=== PATIENT | male | born 1970 | race African-American/Black ===

== ENCOUNTER 2018-07-15 21:03 | Inpatient (IN) ==
[2018-07-15] MEDS ORDERED: fentaNYL 100 MCG/2 ML VIAL IV STA (21:22)
[2018-07-15 21:27] LABS: Basophils # 0.1 10*3/uL (0.0-0.2); Basophils % 0.4 % (0.0-0.8); Eosinophils # 0.1 10*3/uL (0.0-0.87); Eosinophils % 0.6 % (0.00-10.9); Hematocrit 42.7 VOL% (42.0-52.0); Hemoglobin 13.6 GM/DL (14.0-18.0); Immature Granulocytes % 1.1 %; Immature Granulocytes Absolute 0.16 #; Lymphocytes # 4.1 10*3/uL (1.4-4.0); Lymphocytes % 28.6 % (21.2-54.2); Mean Corpuscular HGB Conc 31.9 GM/DL (32-36); Mean Corpuscular Hemoglobin 30 PG (27-34); Mean Corpuscular Volume 94.5 FL (87-102); Mean Platelet Volume 11.1 FL (9.6-12.0); Monocytes # 0.7 10*3/uL (0.11-0.8); Monocytes % 4.6 % (1.7-12.7); Neutrophils # 9.3 10*3/uL (1.4-7.4); Neutrophils % 64.7 % (38.7-73.9); Platelet Count 185 T/CUMM (130-400); Red Blood Count 4.52 MC/CUMM (3.8-5.5); Red Cell Distribution Width 12.1 % (9.3-17.3); White Blood Count 14.3 T/CUMM (4-12)
[2018-07-15 21:36] LABS: INR 0.9; PT Patient Result 9.7 SECS; Partial Thromboplastin Time 22.8 SECS (0-40)
[2018-07-15 21:50] LABS: Albumin 3.5 G/DL (3.4-5.0); Bilirubin,Total 0.4 MG/DL (0.2-1.0); Calcium 8.2 MG/DL (8.5-10.1); Osmolality,Calculated 276.7 MOS/KG (273-304); Potassium 3.7 MMOL/L (3.5-5.1); Total Protein 8.1 G/DL (6.4-8.3)
[2018-07-15] MEDS ORDERED: SODIUM CHLORIDE 0.9% 1,000 ML IV STA ×2 (22:20→23:58)
[2018-07-15 22:24] LABS: Apearance,Urine CLEAR (Clear); Bilirubin,Urine Negative (Negative); Blood, Urine Small mg/dL (Negative); Glucose,Urine (UA) Negative (Negative); Ketones,Urine Negative (Negative); Mucus,Urine Occasional /LPF (Occasional); Nitrite,Urine Negative (Negative); Protein,Urine Negative; RBC,Urine <1 /HPF (0-4); Urine Color Straw (Yellow); Urine Specific Gravity 1.008 (1.001-1.035); Urine Urobilinogen < 2.0 EU/DL (0.2-1.0); WBC,Urine 1 /HPF (0-6)
[2018-07-15 22:51] LABS: Barbiturates Screen,Urine Negative (Negative); Benzodiazepines Screen,Urine Negative (Negative); Cannabinoid Screen,Urine Negative (Negative); Opiate Screen,Urine Positive (Negative); Phencyclidine Screen,Urine Negative (Negative)
[2018-07-15 23:21] LABS: Lactic Acid 3.4 MMOL/L (0.4-2.0)
[2018-07-16] MEDS ORDERED: ACETAMINOPHEN 325 MG TABLET PO PRN (00:41)
[2018-07-16] MEDS ORDERED: ONDANSETRON 4 MG/2 ML VIAL IV PRN (00:41)
[2018-07-16] MEDS: DEXTROSE 5% NACL 0.45% 1,000 ML IV SCH ×3 (01:29→18:07)
[2018-07-16 04:08] LABS: Basophils % 0.2 % (0.0-0.8); Hematocrit 39.1 VOL% (42.0-52.0); Hemoglobin 12.3 GM/DL (14.0-18.0); Immature Granulocytes % 0.4 %; Immature Granulocytes Absolute 0.05 #; Lymphocytes # 0.7 10*3/uL (1.4-4.0); Lymphocytes % 5.9 % (21.2-54.2); Mean Corpuscular HGB Conc 31.5 GM/DL (32-36); Mean Corpuscular Hemoglobin 30 PG (27-34); Mean Corpuscular Volume 94.2 FL (87-102); Mean Platelet Volume 11.5 FL (9.6-12.0); Monocytes # 0.6 10*3/uL (0.11-0.8); Monocytes % 5.4 % (1.7-12.7); Neutrophils # 10.4 10*3/uL (1.4-7.4); Neutrophils % 88.1 % (38.7-73.9); Platelet Count 196 T/CUMM (130-400); Red Blood Count 4.15 MC/CUMM (3.8-5.5); Red Cell Distribution Width 12.1 % (9.3-17.3); White Blood Count 11.8 T/CUMM (4-12)
[2018-07-16 04:40] LABS: Lactic Acid 2.3 MMOL/L (0.4-2.0)
[2018-07-16 08:18] LABS: Lactic Acid 2.4 MMOL/L (0.4-2.0)
[2018-07-16] MEDS: MORPHINE 4 MG/1 ML VIAL IV PRN ×4 (08:51→21:38)
[2018-07-16] MEDS: LISINOPRIL 20 MG TABLET PO SCH ×2 (08:51→20:59)
[2018-07-16] MEDS: PANTOPRAZOLE 40 MG TABLET PO SCH (08:51)
[2018-07-16] MEDS ORDERED: INFLUENZA VIRUS VACCINE 0.5 ML SYRINGE IM ONE (09:00)
[2018-07-17] MEDS: MORPHINE 4 MG/1 ML VIAL IV PRN ×3 (01:21→14:20)
[2018-07-17] MEDS: DEXTROSE 5% NACL 0.45% 1,000 ML IV SCH ×3 (02:08→19:21)
[2018-07-17] MEDS: LISINOPRIL 20 MG TABLET PO SCH ×2 (08:05→20:28)
[2018-07-17] MEDS: PANTOPRAZOLE 40 MG TABLET PO SCH (08:05)
[2018-07-17 09:06] LABS: Basophils % 0.4 % (0.0-0.8); Eosinophils % 0.5 % (0.00-10.9); Hematocrit 38.1 VOL% (42.0-52.0); Hemoglobin 12.1 GM/DL (14.0-18.0); Immature Granulocytes % 0.4 %; Immature Granulocytes Absolute 0.03 #; Lymphocytes % 13.4 % (21.2-54.2); Mean Corpuscular HGB Conc 31.8 GM/DL (32-36); Mean Corpuscular Hemoglobin 30 PG (27-34); Mean Corpuscular Volume 95.5 FL (87-102); Mean Platelet Volume 11.2 FL (9.6-12.0); Monocytes # 0.7 10*3/uL (0.11-0.8); Monocytes % 8.5 % (1.7-12.7); Neutrophils # 5.9 10*3/uL (1.4-7.4); Neutrophils % 76.8 % (38.7-73.9); Platelet Count 123 T/CUMM (130-400); Red Blood Count 3.99 MC/CUMM (3.8-5.5); White Blood Count 7.6 T/CUMM (4-12)
[2018-07-17 09:30] LABS: Calcium 8.2 MG/DL (8.5-10.1); Osmolality,Calculated 268.1 MOS/KG (273-304); Potassium 4.2 MMOL/L (3.5-5.1)
[2018-07-17 09:32] LABS: Lactic Acid 1.9 MMOL/L (0.4-2.0)
[2018-07-17] MEDS: hydrALAZINE 20 MG/1 ML VIAL IV PRN ×3 (09:55→23:25)
[2018-07-17] MEDS: ALBUTEROL/IPRATROPIUM 3 ML NEB RESP TX SCH ×3 (11:15→19:35)
[2018-07-17] MEDS: MUPIROCIN 2% OINT 22 GM TUBE TOP SCH (14:00)
[2018-07-18] MEDS: DEXTROSE 5% NACL 0.45% 1,000 ML IV SCH ×4 (03:36→19:45)
[2018-07-18] MEDS: ALBUTEROL/IPRATROPIUM 3 ML NEB RESP TX SCH ×4 (07:20→19:27)
[2018-07-18] MEDS: LISINOPRIL 20 MG TABLET PO SCH ×2 (11:34→21:03)
[2018-07-18] MEDS: PANTOPRAZOLE 40 MG TABLET PO SCH (11:34)
[2018-07-18] MEDS: MUPIROCIN 2% OINT 22 GM TUBE TOP SCH (12:18)
[2018-07-19] MEDS: hydrALAZINE 20 MG/1 ML VIAL IV PRN (00:52)
[2018-07-19] MEDS: ALBUTEROL/IPRATROPIUM 3 ML NEB RESP TX SCH ×4 (07:23→19:06)
[2018-07-19] MEDS: LISINOPRIL 20 MG TABLET PO SCH ×3 (07:35→21:12)
[2018-07-19] MEDS: PANTOPRAZOLE 40 MG TABLET PO SCH ×3 (07:36→10:01)
[2018-07-19] MEDS: DEXTROSE 5% NACL 0.45% 1,000 ML IV SCH ×2 (07:44→10:00)
[2018-07-19] MEDS: MUPIROCIN 2% OINT 22 GM TUBE TOP SCH (09:54)
[2018-07-19] MEDS: SILVER SULFADIAZINE 1% CREAM 25 GM TUBE TOP SCH (11:53)
[2018-07-19] MEDS: MORPHINE 4 MG/1 ML VIAL IV PRN (21:13)
[2018-07-20] MEDS: DEXTROSE 5% NACL 0.45% 1,000 ML IV SCH (04:24)
[2018-07-20] MEDS: ALBUTEROL/IPRATROPIUM 3 ML NEB RESP TX SCH ×2 (07:20→10:30)
[2018-07-20] MEDS: LISINOPRIL 20 MG TABLET PO SCH (09:10)
[2018-07-20] MEDS: PANTOPRAZOLE 40 MG TABLET PO SCH (09:10)
[2018-07-20] MEDS: MUPIROCIN 2% OINT 22 GM TUBE TOP SCH (11:10)
[2018-07-20] MEDS: SILVER SULFADIAZINE 1% CREAM 25 GM TUBE TOP SCH (11:10)
[2018-07-20 12:17] VITALS: BP 161/91
== END 2018-07-20 14:05 | disposition home or self-care (01) | DRG 183 ==
LOC: N.ED 21:03 → N.EDINP 07-16 00:41 → N.ICU 07-16 02:30 → N.3E 07-17 17:30
PROVIDERS: ADMIT Surgery; ATTEND Surgery